=== PATIENT | female | born 1955 | race Caucasian/White ===

== ENCOUNTER → 2018-01-06 10:33 | Outpatient (CLI) | payer OTHER, SELFPAY ==
--- NOTE | 2018-01-06 | OV.WND_ITS ---
Progress Note Details Patient Name: Alesha Crawford Patient Number: [id number] PatientPatientDate: 01/06/2018 Clinician: Irene Farley Physician / Developmental Specialist: Donnie Garrido SUBJECTIVE Chief Complaint This information was obtained from the patient Cellulitis on Right Leg Allergies lisinopril (Severity: Moderate), losartan (Severity: Moderate) HPI This information was obtained from the patient 01/06/18. Seen by Dr. Garrido. The patient's new to our clinic and presents with a chronic right lower leg venous ulcer that was first noticed about 6 weeks ago. She reports significant drainage from the site and completed a course of Keflex a few weeks ago without improvement. She's also now on Lasix for chronic venous hypertension but does not wear a compression stocking. Her diabetes is historically poorly controlled with a recent A1c of 8.6 although she states her sugars are improving the past week to around 150. Family History This information was obtained from the patient Cancer - Sibling, Diabetes - Father, Paternal Grandparents, Heart Disease - Father, Hypertension - Father, Kidney Disease - No History, Lung Disease - No History, Mental Illness - No History, Non-contributory - No History, None - No History, Other - No History , Seizures - Sibling, Stroke - Father, Thyroid Problems - No History, Tuberculosis - No History Social History This information was obtained from the patient Never smoker, Caffeine Use - 2-3, Children - 2, Lives in - Home, Marital Status - yes, Occupation - Insurance , Self Care and Mobility Past Medical History This information was obtained from the patient Patient has a medical history of: Diabetes Factor V Neuropathy Hypertension Asthma Pulmonary Embolus (Both Lungs) Venous Insuffiency Morbid Obesity IBS Wound Surgical History This information was obtained from the patient Patient has a surgical history of: Hysterectomy (34 years ago) Complaints and Symptoms This information was obtained from the patient Patient complains of: General Notes: I have reviewed and concur with the Review of Systems and Past Family Social History documents completed by the clinician, I have reviewed and concur with the Wound Assessment document completed by the clinician Cardiovascular (Central/Peripheral): Lower extremity (leg) swelling Hematologic/Lymphatic: Bleeding / Clotting Disorders, Bleeding Tendency Integumentary (Hair/Skin/Nails): Open Sore Neurological: Loss of Protective Sensation Prior Wound History: Drainage, Erythema, Pain Patient denies complaints or symptoms related to: Cardiovascular (Central/Peripheral): Lower extremity (leg) resting pain Constitutional Symptoms (General Health): Chills, Fever Ear/Nose/Mouth/Throat: Hearing Loss / Aid Psychiatric: Memory Loss Respiratory: Oxygen Use, Shortness of Breath General Notes: States updated. Medications Coumadin 2.5 mg tablet oral 2 2 tablet oral M,W,F Sun Coumadin 2.5 mg tablet oral 3 3 tablet oral T, Edda, Sat gabapentin 300 mg capsule oral 1 1 capsule oral once daily Aller-Sandip 10 mg tablet oral 1 1 tablet oral once daily metformin 500 mg tablet oral 1 1 tablet oral three times daily glipizide 10 mg tablet oral 1 1 tablet oral 4 times a day lovastatin 10 mg tablet oral 1 1 tablet oral once daily hydralazine 25 mg tablet oral 1 1 tablet oral twice daily Humulin N NPH U-100 Insulin (isophane susp) 100 unit/mL subcutaneous subcutaneous 18u 18u suspension subcutaneous twice daily Humulin R U-500 (Concentrated) Insulin 500 unit/mL subcutaneous soln subcutaneous 18u 18u solution subcutaneous twice daily montelukast 10 mg tablet oral 1 1 tablet oral once daily furosemide 40 mg tablet oral 1 1 tablet oral once daily potassium chloride ER 20 mEq tablet,extended release oral 1 1 tablet extended release oral once daily hydrochlorothiazide 25 mg tablet oral 1 1 tablet oral once daily gentamicin 0.1 % topical ointment topical ointment topical once daily for 7 days OBJECTIVE Constitutional BP elevated; Afebrile; Alert and in no distress. Well developed. Alert. Clean appearing.. Height/Length: 64 in (162.56 cm), Weight: 163.7 lbs (74.41 kgs), BMI: 28.1, Temperature: 98.6 ?F (37 ?C), Pulse: 86 bpm, Respiratory Rate: 16 breaths/min, Blood Pressure : 137/78 mmHg, Pulse Oximetry: 96 %. Ears, Nose, Mouth, and Throat: No clinically significant hearing loss on informal examination. Respiratory: No respiratory distress. Even respirations and without use of accessory muscles.. Cardiovascular: 2+ bilateral lower leg edema. Gastrointestinal (GI): Obese. Nondistended.. Integumentary (Hair, Skin) Hemosiderin staining noted over right lower leg. Refer to appropriate clinician wound documentation for this visit; right lower leg ulcer extends to subcut with base partially covered with pink granulation, remainder fibrin and slough. Wound #1 Right, Medial Ankle is a chronic Full Thickness Venous Ulcer and has received a status of Not Healed. Initial wound encounter measurements are 2.2cm length x 2.5cm width x 0.2cm depth, with an area of 5.5 sq cm and a volume of 1.1 cubic cm. No tunneling has been noted. No sinus tract has been noted. No undermining has been noted. There is a large amount of serosanguineous drainage noted which has no odor. The patient reports a wound pain of level 0/10. The wound margin is attached. Wound bed has No epithelialization, No eschar, Yes slough, Yes pink, spongy granulation. The periwound skin texture is normal. The periwound skin moisture is normal. The periwound skin color is normal. The temperature of the periwound skin is WNL. Periwound skin presents with s/s of infection. Local Pulse is Palpable. General Notes: Bi-Phasic bi-lat on PT and DP. Neurological: Cranial nerves grossly intact with symmetric function normal by informal observation.. ASSESSMENT Active Problems ICD-10 (Encounter Diagnosis) L97.822 - Non-pressure chronic ulcer of other part of left lower leg with fat layer exposed (Encounter Diagnosis) I87.311 - Chronic venous hypertension (idiopathic) with ulcer of right lower extremity (Encounter Diagnosis) L08.9 - Local infection of the skin and subcutaneous tissue, unspecified (Encounter Diagnosis) E11.628 - Type 2 diabetes mellitus with other skin complications PROCEDURES Wound #1 Wound #1 (Venous Ulcer) is located on the right, medial ankle. A skin/ subcutaneous tissue level surgical debridement with a total area debrided of 5.5 sq cm was performed by Donnie Garrido MD. Subcutaneous was removed along with devitalized tissue: exudate and slough. The following instrument(s) were used: curette. Pain control was achieved using 4% Lido. A time out was conducted prior to the start of the procedure. A minimal amount of bleeding was controlled with pressure. The procedure was tolerated well with a pain level of 2 throughout and a pain level of 0 following the procedure. Post Debridement Measurements: 2.2cm length x 2.5cm width x 0.2cm depth; with an area of 5.5 sq cm and a volume of 1.1 cubic cm; Additional Information Muscle fascia or bone removed and sent to pathology?: No PLAN Wound Orders: Wound #1 Right, Medial Ankle Cleanser Cleanse Wound: - With Distilled water. May Shower. - Please keep dressing dry so when you shower use a Cast Protector. Topical Treatments Antibiotic/Antimicrobial Ointment/Cream. - Gentamicin to the wound base. Dressings Primary dressing: - Aquacel foam Cover and secure with: - Conform guaze and tape to secure. Change Dressing: - Every day to twice a day. Compression/Edema Control Elevation of leg(s) above the level of the heart when sitting. Avoid prolonged standing in one place. Single Layer Compression Hose - Tetra size F on in the am and off in pm Follow-Up Appointments Return Appointment: - - One Week Other information: If you develop fever, chills, increased pain, drainage, redness or swelling please call our office. If after hours, respond to the ER. Should you experience any significant changes in your wound(s) or have any questions regarding your home care instructions please contact the wound center @ [phone]. If after hours, contact your primary care physician or go to the hospital emergency room. Laboratory: Culture Wound - Right Medial Ankle Medications prescribed: gentamicin - topical 0.1 % ointment once daily for 7 days starting 01/06/2018 General Notes: Please start antibiotics. I've reviewed the clinician's documentation and agree with the evaluation and plan as written. In addition, the patient's ulcer demonstrates evidence of non-viable devitalized tissue which will continue to benefit from sharp debridement to help promote granulation and expedite healing. Also, I've started the patient on topical gentamicin for a superficial wound infection and will consider starting an oral antibiotic pending the culture results. She'll begin wearing a compression stocking, continue on Lasix, and I counseled her on the need to optimize the blood sugar control to help prevent wound infections. Electronic Signature(s) Signed By: Date: Donnie Garrido MD 01/07/2018 09:41:06 Entered By: Donnie Garrido on 01/07/2018 09:26:48
== END ==
PROVIDERS: PCP Family Medicine; Visit Provider Internal Medicine
DX: I87.311 Chronic venous hypertension (idiopathic) with ulcer of right lower extremity (principal); L97.822 Non-pressure chronic ulcer of other part of left lower leg with fat layer exposed; L08.9 Local infection of the skin and subcutaneous tissue, unspecified; E11.628 Type 2 diabetes mellitus with other skin complications
CPT/HCPCS: 11042; 87070; 87075; 87077; 87147; 87186; 87205; 99214

== ENCOUNTER → 2018-01-13 15:17 | Outpatient (CLI) | payer OTHER, SELFPAY ==
--- NOTE | 2018-01-13 | OV.WND_ITS ---
Progress Note Details Patient Name: Alesha Crawford Patient Number: [id number] PatientPatientDate: 01/13/2018 Clinician: Irene Farley Clinician Cosigner: Ariana Banks Physician / Pens And Pencils Dipper: Donnie Garrido SUBJECTIVE Chief Complaint This information was obtained from the patient Cellulitis on Right Leg Allergies lisinopril (Severity: Moderate), losartan (Severity: Moderate) HPI This information was obtained from the patient 01/13/18. Seen by Dr. Garrido. The patient reports a modest improvement in terms of her right lower leg venous ulcer pain and drainage since her last visit and she's applying topical gentamicin to treat the recent Staph positive culture. 01/06/18. Seen by Dr. Garrido. The patient's new to our clinic and presents with a chronic right lower leg venous ulcer that was first noticed about 6 weeks ago. She reports significant drainage from the site and completed a course of Keflex a few weeks ago without improvement. She's also now on Lasix for chronic venous hypertension but does not wear a compression stocking. Her diabetes is historically poorly controlled with a recent A1c of 8.6 although she states her sugars are improving the past week to around 150. Past Medical History This information was obtained from the patient Patient has a medical history of: Diabetes Factor V Neuropathy Hypertension Asthma Pulmonary Embolus (Both Lungs) Venous Insuffiency Morbid Obesity IBS Wound Complaints and Symptoms This information was obtained from the patient Patient complains of: General Notes: I have reviewed and concur with the Review of Systems and Past Family Social History documents completed by the clinician, I have reviewed and concur with the Wound Assessment document completed by the clinician Cardiovascular (Central/Peripheral): Lower extremity (leg) swelling Hematologic/Lymphatic: Bleeding / Clotting Disorders, Bleeding Tendency Integumentary (Hair/Skin/Nails): Open Sore Neurological: Loss of Protective Sensation Prior Wound History: Drainage, Erythema, Pain Patient denies complaints or symptoms related to: Cardiovascular (Central/Peripheral): Lower extremity (leg) resting pain Constitutional Symptoms (General Health): Chills, Fever Ear/Nose/Mouth/Throat: Hearing Loss / Aid Psychiatric: Memory Loss Respiratory: Oxygen Use, Shortness of Breath OBJECTIVE Constitutional BP elevated; Afebrile; Alert and in no distress. Well developed. Alert. Clean appearing.. Height/Length: 64 in (162.56 cm), Weight: 163.7 lbs (74.41 kgs), BMI: 28.1, Temperature: 96.6 ?F (35.89 ?C), Pulse: 103 bpm, Respiratory Rate: 16 breaths/min, Blood Pressure: 140/82 mmHg, Capillary Blood Glucose: 160 mg/dl, Pulse Oximetry: 94 %. Vital Signs Notes: Glucose per patient. Ears, Nose, Mouth, and Throat: No clinically significant hearing loss on informal examination. Cardiovascular: 2+ right lower extremity edema. Gastrointestinal (GI): Obese. Nondistended.. Integumentary (Hair, Skin) Hemosiderin staining noted over right lower leg. Refer to appropriate clinician wound documentation for this visit; right lower leg ulcer extends to subcut with base partially covered with pink granulation, remainder fibrin and slough. Wound #1 Right, Medial Ankle is a chronic Full Thickness Venous Ulcer and has received a status of Not Healed. Initial wound encounter measurements are 2cm length x 2.1cm width x 0.1cm depth, with an area of 4.2 sq cm and a volume of 0.42 cubic cm. No tunneling has been noted. No sinus tract has been noted. No undermining has been noted. There is a copious amount of serosanguineous drainage noted which has no odor. The patient reports a wound pain of level 0/10. The wound margin is attached. Wound bed has No epithelialization, No eschar, Yes slough, Yes pink, spongy granulation. The periwound skin texture is normal. The periwound skin color is normal. The periwound skin exhibited: Maceration. The temperature of the periwound skin is WNL. Periwound skin does not exhibit signs or symptoms of infection. Local Pulse is Palpable. Neurological: Cranial nerves grossly intact with symmetric function normal by informal observation.. ASSESSMENT Active Problems ICD-10 (Encounter Diagnosis) L97.822 - Non-pressure chronic ulcer of other part of left lower leg with fat layer exposed (Encounter Diagnosis) I87.311 - Chronic venous hypertension (idiopathic) with ulcer of right lower extremity (Encounter Diagnosis) B95.61 - Methicillin susceptible Staphylococcus aureus infection as the cause of diseases classified elsewhere PROCEDURES Wound #1 Wound #1 (Venous Ulcer) is located on the right, medial ankle. A skin/ subcutaneous tissue level surgical debridement with a total area debrided of 4.2 sq cm was performed by Donnie Garrido MD. Subcutaneous was removed along with devitalized tissue: slough. The following instrument(s) were used: curette. Pain control was achieved using 4% Lido. A time out was conducted prior to the start of the procedure. No bleeding occurred. The procedure was tolerated well with a pain level of 0 throughout and a pain level of 0 following the procedure. Post Debridement Measurements: 2cm length x 2.1cm width x 0.1cm depth; with an area of 4.2 sq cm and a volume of 0.42 cubic cm; Additional Information Muscle fascia or bone removed and sent to pathology?: No PLAN Wound Orders: Wound #1 Right, Medial Ankle Cleanser Cleanse Wound: - With Distilled water. May Shower. - Please keep dressing dry so when you shower use a Cast Protector. Topical Treatments Antibiotic/Antimicrobial Ointment/Cream. - Gentamicin to the wound base. Dressings Pack wound: - Aquacel Extra Primary dressing: - Superabsorbent Mextra Cover and secure with: - Conform guaze and tape to secure. Change Dressing: - Every day to twice a day. Compression/Edema Control Elevation of leg(s) above the level of the heart when sitting. Avoid prolonged standing in one place. Single Layer Compression Hose - Tetra size G on in the am and off in pm Follow-Up Appointments Return Appointment: - - One Week Other information: If you develop fever, chills, increased pain, drainage, redness or swelling please call our office. If after hours, respond to the ER. Should you experience any significant changes in your wound(s) or have any questions regarding your home care instructions please contact the wound center @ [phone]. If after hours, contact your primary care physician or go to the hospital emergency room. I've reviewed the clinician's documentation and agree with the evaluation and plan as written. In addition, the patient's ulcer demonstrates evidence of non-viable devitalized tissue which will continue to benefit from sharp debridement to help promote granulation and expedite healing. Also, the patient will continue to treat the superficial Staph wound infection with topical gentamicin. Electronic Signature(s) Signed By: Date: Donnie Garrido MD 01/14/2018 06:00:06 Entered By: Donnie Garrido on 01/14/2018 05:41:50
== END ==
PROVIDERS: PCP Family Medicine; Visit Provider Internal Medicine
DX: I87.311 Chronic venous hypertension (idiopathic) with ulcer of right lower extremity (principal); L97.312 Non-pressure chronic ulcer of right ankle with fat layer exposed; B95.61 Methicillin susceptible Staphylococcus aureus infection as the cause of diseases classified elsewhere
CPT/HCPCS: 11042

== ENCOUNTER → 2018-01-19 09:21 | Outpatient (CLI) | payer OTHER, SELFPAY ==
--- NOTE | 2018-01-19 | OV.WND_ITS ---
Progress Note Details Patient Name: Alesha Crawford Patient Number: [id number] PatientPatientDate: 01/19/2018 Clinician: Celine Smith Clinician Cosigner: Veda Ty Physician / Information Systems Auditor: Donnie Garrido SUBJECTIVE Chief Complaint This information was obtained from the patient Cellulitis on Right Leg Allergies lisinopril (Severity: Moderate), losartan (Severity: Moderate) HPI This information was obtained from the patient 01/19/18. Seen by Dr. Garrido. The patient does not report significant pain associated with the chronic right lower leg venous ulcer since her last visit however she continues to have very heavy, serous drainage from the site. She's wearing a compression stocking as recommended to treat severe chronic venous hypertension and is applying topical gentamicin to the ulcer base to treat the MSSA positive wound culture. 01/13/18. Seen by Dr. Garrido. The patient reports a modest improvement in terms of her right lower leg venous ulcer pain and drainage since her last visit and she's applying topical gentamicin to treat the recent Staph positive culture. 01/06/18. Seen by Dr. Garrido. The patient's new to our clinic and presents with a chronic right lower leg venous ulcer that was first noticed about 6 weeks ago. She reports significant drainage from the site and completed a course of Keflex a few weeks ago without improvement. She's also now on Lasix for chronic venous hypertension but does not wear a compression stocking. Her diabetes is historically poorly controlled with a recent A1c of 8.6 although she states her sugars are improving the past week to around 150. Past Medical History This information was obtained from the patient Patient has a medical history of: Diabetes Factor V Neuropathy Hypertension Asthma Pulmonary Embolus (Both Lungs) Venous Insuffiency Morbid Obesity IBS Wound Complaints and Symptoms This information was obtained from the patient Patient complains of: General Notes: I have reviewed and concur with the Review of Systems and Past Family Social History documents completed by the clinician, I have reviewed and concur with the Wound Assessment document completed by the clinician Cardiovascular (Central/Peripheral): Lower extremity (leg) swelling Hematologic/Lymphatic: Bleeding / Clotting Disorders, Bleeding Tendency Integumentary (Hair/Skin/Nails): Open Sore Neurological: Loss of Protective Sensation Prior Wound History: Drainage, Erythema, Pain Patient denies complaints or symptoms related to: Cardiovascular (Central/Peripheral): Lower extremity (leg) resting pain Constitutional Symptoms (General Health): Chills, Fever Ear/Nose/Mouth/Throat: Hearing Loss / Aid Psychiatric: Memory Loss Respiratory: Oxygen Use, Shortness of Breath OBJECTIVE Constitutional Vital signs reviewed and noted. Well developed. Alert. Clean appearing.. Height/ Length: 64 in (162.56 cm), Weight: 375.1 lbs (170.5 kgs), BMI: 64.4, Temperature: 97.3 ?F ( 36.28 ?C), Pulse: 90 bpm, Respiratory Rate: 16 breaths/min, Blood Pressure: 136/65 mmHg, Capillary Blood Glucose: 184 mg/dl, Pulse Oximetry: 95 %. Ears, Nose, Mouth, and Throat: No clinically significant hearing loss on informal examination. Respiratory: No respiratory distress. Even respirations and without use of accessory muscles.. Cardiovascular: 2+ right lower extremity edema. Gastrointestinal (GI): Obese. Nondistended.. Integumentary (Hair, Skin) Hemosiderin staining noted over right lower leg. Refer to appropriate clinician wound documentation for this visit; right lower leg ulcer extends to subcut with base partially covered with pink granulation, remainder fibrin and slough. Wound #1 Right, Medial Ankle is a chronic Full Thickness Venous Ulcer and has received a status of Not Healed. Subsequent wound encounter measurements are 2.1cm length x 2cm width x 0.1cm depth, with an area of 4.2 sq cm and a volume of 0.42 cubic cm. No tunneling has been noted. No sinus tract has been noted. No undermining has been noted. There is a copious amount of serosanguineous drainage noted which has no odor. The patient reports a wound pain of level 0/10. The wound margin is attached. Wound bed has No epithelialization, No eschar, Yes slough, Yes pink, spongy granulation. The periwound skin texture is normal. The periwound skin color is normal. The periwound skin exhibited: Maceration. The temperature of the periwound skin is WNL. Periwound skin does not exhibit signs or symptoms of infection. Local Pulse is Palpable. Neurological: Cranial nerves grossly intact with symmetric function normal by informal observation.. ASSESSMENT Active Problems ICD-10 (Encounter Diagnosis) L97.822 - Non-pressure chronic ulcer of other part of left lower leg with fat layer exposed (Encounter Diagnosis) I87.311 - Chronic venous hypertension (idiopathic) with ulcer of right lower extremity PROCEDURES Wound #1 Wound #1 (Venous Ulcer) is located on the right, medial ankle. A skin/ subcutaneous tissue level surgical debridement with a total area debrided of 4.2 sq cm was performed by Donnie Garrido MD. Subcutaneous was removed along with devitalized tissue: slough. The following instrument(s) were used: curette. Pain control was achieved using 4% Lido. A time out was conducted prior to the start of the procedure. A minimal amount of bleeding was controlled with n/a. The procedure was tolerated well with a pain level of 0 throughout and a pain level of 0 following the procedure. Post Debridement Measurements: 2.1cm length x 2cm width x 0.2cm depth; with an area of 4.2 sq cm and a volume of 0.84 cubic cm; Additional Information Muscle fascia or bone removed and sent to pathology?: No PLAN Wound Orders: Wound #1 Right, Medial Ankle Cleanser Cleanse Wound: - With Distilled water. May Shower. - Please keep dressing dry so when you shower use a Cast Protector. Topical Treatments Antibiotic/Antimicrobial Ointment/Cream. - Gentamicin to the wound base. Dressings Pack wound: - Aquacel Extra Primary dressing: - Superabsorbent Mextra Cover and secure with: - Conform guaze and tape to secure. Change Dressing: - Every day to twice a day. Compression/Edema Control Elevation of leg(s) above the level of the heart when sitting. Avoid prolonged standing in one place. Single Layer Compression Hose - Tetra size G on in the am and off in pm Follow-Up Appointments Return Appointment: - - One Week Other information: If you develop fever, chills, increased pain, drainage, redness or swelling please call our office. If after hours, respond to the ER. Should you experience any significant changes in your wound(s) or have any questions regarding your home care instructions please contact the wound center @ [phone]. If after hours, contact your primary care physician or go to the hospital emergency room. I've reviewed the clinician's documentation and agree with the evaluation and plan as written. In addition, the patient's ulcer demonstrates evidence of non-viable devitalized tissue which will continue to benefit from sharp debridement to help promote granulation and expedite healing. Also, we will request insurance authorization for a wound vac and consider placing a compression wrap next week. Electronic Signature(s) Signed By: Date: Donnie Garrido MD 01/20/2018 06:42:26 Entered By: Donnie Garrido on 01/20/2018 06:40:42
== END ==
PROVIDERS: PCP Family Medicine; Visit Provider Internal Medicine
DX: I87.311 Chronic venous hypertension (idiopathic) with ulcer of right lower extremity (principal); L97.312 Non-pressure chronic ulcer of right ankle with fat layer exposed
CPT/HCPCS: 11042

== ENCOUNTER → 2018-01-26 08:42 | Outpatient (CLI) | payer OTHER, SELFPAY ==
--- NOTE | 2018-01-26 | OV.WND_ITS ---
Progress Note Details Patient Name: Alesha Crawford Patient Number: [id number] PatientPatientDate: 01/26/2018 Clinician: Veda yT Clinician Cosigner: Ariana Banks Physician / Reproduction Production Manager: Donnie Garrido SUBJECTIVE Chief Complaint This information was obtained from the patient Venous ulcer on right leg. Allergies lisinopril (Severity: Moderate), losartan (Severity: Moderate) HPI This information was obtained from the patient 01/26/18. Seen by Dr. Garrido. The patient does not report significant pain associated with the chronic right lower leg venous ulcer since her last visit and we're planning on placing a compression wrap today to treat the chronic venous hypertension which is complicating her wound healing. 01/19/18. Seen by Dr. Garrido. The patient does not report significant pain associated with the chronic right lower leg venous ulcer since her last visit however she continues to have very heavy, serous drainage from the site. She's wearing a compression stocking as recommended to treat severe chronic venous hypertension and is applying topical gentamicin to the ulcer base to treat the MSSA positive wound culture. 01/13/18. Seen by Dr. Garrido. The patient reports a modest improvement in terms of her right lower leg venous ulcer pain and drainage since her last visit and she's applying topical gentamicin to treat the recent Staph positive culture. 01/06/18. Seen by Dr. Garrido. The patient's new to our clinic and presents with a chronic right lower leg venous ulcer that was first noticed about 6 weeks ago. She reports significant drainage from the site and completed a course of Keflex a few weeks ago without improvement. She's also now on Lasix for chronic venous hypertension but does not wear a compression stocking. Her diabetes is historically poorly controlled with a recent A1c of 8.6 although she states her sugars are improving the past week to around 150. Past Medical History This information was obtained from the patient Patient has a medical history of: Diabetes Factor V Neuropathy Hypertension Asthma Pulmonary Embolus (Both Lungs) Venous Insuffiency Morbid Obesity IBS Wound Complaints and Symptoms This information was obtained from the patient Patient complains of: General Notes: I have reviewed and concur with the Review of Systems and Past Family Social History documents completed by the clinician, I have reviewed and concur with the Wound Assessment document completed by the clinician Cardiovascular (Central/Peripheral): Lower extremity (leg) swelling Hematologic/Lymphatic: Bleeding / Clotting Disorders, Bleeding Tendency Integumentary (Hair/Skin/Nails): Open Sore Neurological: Loss of Protective Sensation Prior Wound History: Drainage, Erythema, Pain Patient denies complaints or symptoms related to: Cardiovascular (Central/Peripheral): Lower extremity (leg) resting pain Constitutional Symptoms (General Health): Chills, Fever Ear/Nose/Mouth/Throat: Hearing Loss / Aid Psychiatric: Memory Loss Respiratory: Oxygen Use, Shortness of Breath OBJECTIVE Constitutional BP elevated; Afebrile; Alert and in no distress. Well developed. Alert. Clean appearing.. Height/Length: 64 in (162.56 cm), Weight: 373.4 lbs (169.73 kgs), BMI: 64.1, Temperature: 97.8 ?F (36.56 ?C), Pulse: 92 bpm, Respiratory Rate: 18 breaths/min, Blood Pressure: 139/71 mmHg, Capillary Blood Glucose: 162 mg/dl, Pulse Oximetry: 96 %. Vital Signs Notes: Glucose per patient. Ears, Nose, Mouth, and Throat: No clinically significant hearing loss on informal examination. Respiratory: No respiratory distress. Even respirations and without use of accessory muscles.. Cardiovascular: monophasic pedal pulses on the right. 2+ right lower extremity edema. Gastrointestinal (GI): Obese. Nondistended.. Integumentary (Hair, Skin) Hemosiderin staining noted over right lower leg. Refer to appropriate clinician wound documentation for this visit; right lower leg ulcer extends to subcut with base partially covered with pink granulation, remainder fibrin and slough. Wound #1 Right, Medial Ankle is a chronic Full Thickness Venous Ulcer and has received a status of Not Healed. Subsequent wound encounter measurements are 2cm length x 2cm width x 0.1cm depth, with an area of 4 sq cm and a volume of 0.4 cubic cm. No tunneling has been noted. No sinus tract has been noted. No undermining has been noted. There is a copious amount of serosanguineous drainage noted which has no odor. The patient reports a wound pain of level 0/10. The wound margin is attached. Wound bed has Yes epithelialization, No eschar, Yes slough, Yes pink, firm granulation. The periwound skin texture is normal. The periwound skin exhibited: Hemosiderosis. The periwound skin did not exhibit: Dry/Scaly, Moist, Maceration, Atrophie Ursula, Cyanosis, Ecchymosis, Erythema, Pallor, Rubor. The temperature of the periwound skin is WNL. Periwound skin does not exhibit signs or symptoms of infection. Local Pulse is Palpable. Neurological: Cranial nerves grossly intact with symmetric function normal by informal observation.. ASSESSMENT Active Problems ICD-10 (Encounter Diagnosis) L97.822 - Non-pressure chronic ulcer of other part of left lower leg with fat layer exposed (Encounter Diagnosis) I87.311 - Chronic venous hypertension (idiopathic) with ulcer of right lower extremity PROCEDURES Wound #1 Wound #1 (Venous Ulcer) is located on the right, medial ankle. A skin/ subcutaneous tissue level surgical debridement with a total area debrided of 4 sq cm was performed by Donnie Garrido MD. Subcutaneous was removed along with devitalized tissue: slough. The following instrument(s) were used: curette. Pain control was achieved using 4% Lido. A time out was conducted prior to the start of the procedure. A minimal amount of bleeding was controlled with pressure. The procedure was tolerated well with a pain level of 0 throughout and a pain level of 0 following the procedure. Post Debridement Measurements: 2cm length x 2cm width x 0.2cm depth; with an area of 4 sq cm and a volume of 0.8 cubic cm; Additional Information Muscle fascia or bone removed and sent to pathology?: No PLAN Wound Orders: Wound #1 Right, Medial Ankle Cleanser Cleanse Wound: - With Distilled water. May Shower. - Please keep dressing dry so when you shower use a Cast Protector. Topical Treatments Antibiotic/Antimicrobial Ointment/Cream. - Gentamicin to the wound base. Dressings Pack wound: - Aquacel Extra. Primary dressing: - Superabsorbent Mextra (may alternate with poise pads). Cover and secure with: - Conform guaze and tape to secure. Change Dressing: - Every day to twice a day. Compression/Edema Control Elevation of leg(s) above the level of the heart when sitting. Avoid prolonged standing in one place. Single Layer Compression Hose - Tetra size F on in the am and off in pm. Follow-Up Appointments Return Appointment: - - One Week, may cancel this Wednesday's appointment. Other information: If you develop fever, chills, increased pain, drainage, redness or swelling please call our office. If after hours, respond to the ER. Should you experience any significant changes in your wound(s) or have any questions regarding your home care instructions please contact the wound center @ [phone]. If after hours, contact your primary care physician or go to the hospital emergency room. Scribing Attestation I attest, as the nurse, that I scribed these orders for the physician. Cardiovascular: Arterial Doppler Studies - Right lower extremity. General Notes: Plan to wrap at next visit if arterial Doppler studies show adequate flow. I've reviewed the clinician's documentation and agree with the evaluation and plan as written. In addition, the patient's ulcer demonstrates evidence of non-viable devitalized tissue which will continue to benefit from sharp debridement to help promote granulation and expedite healing. Also, we'll defer placing a compression wrap based on my exam today and until we determine if the a degree of clinically significant PAD. Electronic Signature(s) Signed By: Date: Donnie Garrido MD 01/27/2018 09:13:39 Entered By: Donnie Garrido on 01/27/2018 09:10:08
== END ==
PROVIDERS: PCP Family Medicine; Visit Provider Internal Medicine
DX: L97.822 Non-pressure chronic ulcer of other part of left lower leg with fat layer exposed (principal); I87.311 Chronic venous hypertension (idiopathic) with ulcer of right lower extremity
CPT/HCPCS: 11042

== ENCOUNTER → 2018-02-02 09:11 | Outpatient (CLI) | payer OTHER, SELFPAY | PROVIDERS: PCP Family Medicine; Visit Provider Internal Medicine | DX: I87.311 Chronic venous hypertension (idiopathic) with ulcer of right lower extremity (principal); L97.312 Non-pressure chronic ulcer of right ankle with fat layer exposed; I70.238 Atherosclerosis of native arteries of right leg with ulceration of other part of lower leg | CPT/HCPCS: 11042; 97607 ==

== ENCOUNTER → 2018-02-04 08:28 | Outpatient (CLI) | payer OTHER, SELFPAY ==
--- NOTE | 2018-02-04 | OV.WND_ITS ---
Progress Note Details Patient Name: Alesha Crawford Patient Number: [id number] PatientPatientDate: 02/04/2018 Clinician: Celine Smith Clinician Cosigner: Ariana Banks Physician / Treating Machine Operator: Donnie Garrido SUBJECTIVE Chief Complaint This information was obtained from the patient Venous ulcer on right leg. Allergies lisinopril (Severity: Moderate), losartan (Severity: Moderate) HPI This information was obtained from the patient 02/04/18. Seen by Dr. Garrido. The patient's right lower leg venous ulcer SNAP wound vac canister will with fluid within on day of being placed. She does not report pain at the ulcer this and has not yet scheduled an appointment for a vascular consult noting her arterial Doppler showed monophasic flow below the knee. She also has diabetes with a most recent A1c of 8.6 and has stopped applying topical gentamicin which was prescribed for an MSSA positive wound culture. 02/02/18. Seen by Dr. Garrido. The patient does not report significant pain associated with the chronic right lower leg venous ulcer since her last visit. Her arterial Doppler however showed monophasic flow below the knee and she reports pain in both of her feet when lying in bed for which Tylenol is effective at relieving her symptoms. 01/26/18. Seen by Dr. Garrido. The patient does not report significant pain associated with the chronic right lower leg venous ulcer since her last visit and we're planning on placing a compression wrap today to treat the chronic venous hypertension which is complicating her wound healing. 01/19/18. Seen by Dr. Garrido. The patient does not report significant pain associated with the chronic right lower leg venous ulcer since her last visit however she continues to have very heavy, serous drainage from the site. She's wearing a compression stocking as recommended to treat severe chronic venous hypertension and is applying topical gentamicin to the ulcer base to treat the MSSA positive wound culture. 01/13/18. Seen by Dr. Garrido. The patient reports a modest improvement in terms of her right lower leg venous ulcer pain and drainage since her last visit and she's applying topical gentamicin to treat the recent Staph positive culture. 01/06/18. Seen by Dr. Garrido. The patient's new to our clinic and presents with a chronic right lower leg venous ulcer that was first noticed about 6 weeks ago. She reports significant drainage from the site and completed a course of Keflex a few weeks ago without improvement. She's also now on Lasix for chronic venous hypertension but does not wear a compression stocking. Her diabetes is historically poorly controlled with a recent A1c of 8.6 although she states her sugars are improving the past week to around 150. Past Medical History This information was obtained from the patient Patient has a medical history of: Diabetes, type 2 Factor V Neuropathy Hypertension Asthma Pulmonary Embolus (Both Lungs) Venous Insuffiency Morbid Obesity IBS Wound Complaints and Symptoms This information was obtained from the patient Patient complains of: General Notes: I have reviewed and concur with the Review of Systems and Past Family Social History documents completed by the clinician, I have reviewed and concur with the Wound Assessment document completed by the clinician Cardiovascular (Central/Peripheral): Lower extremity (leg) swelling Hematologic/Lymphatic: Bleeding / Clotting Disorders, Bleeding Tendency Integumentary (Hair/Skin/Nails): Open Sore Neurological: Loss of Protective Sensation Prior Wound History: Drainage, Erythema, Pain Patient denies complaints or symptoms related to: Cardiovascular (Central/Peripheral): Lower extremity (leg) resting pain Constitutional Symptoms (General Health): Chills, Fever Ear/Nose/Mouth/Throat: Hearing Loss / Aid Psychiatric: Memory Loss Respiratory: Oxygen Use, Shortness of Breath OBJECTIVE Constitutional BP elevated; Afebrile; Alert and in no distress. Well developed. Alert. Clean appearing.. Height/Length: 64 in (162.56 cm), Weight: 375 lbs (170.45 kgs), BMI: 64.4, Temperature: 97.7 ?F (36.5 ?C), Pulse: 100 bpm, Respiratory Rate: 18 breaths/min, Blood Pressure: 137/75 mmHg, Capillary Blood Glucose: 147 mg/dl, Pulse Oximetry: 99 %. Vital Signs Notes: Glucose per patient Ears, Nose, Mouth, and Throat: No clinically significant hearing loss on informal examination. Respiratory: No respiratory distress. Even respirations and without use of accessory muscles.. Cardiovascular: 2+ right lower extremity edema. Gastrointestinal (GI): Obese. Nondistended.. Integumentary (Hair, Skin) Hemosiderin staining noted over right lower leg. Refer to appropriate clinician wound documentation for this visit; right lower leg ulcer extends to subcut with base partially covered with pink granulation, remainder fibrin and slough. Wound #1 Right, Medial Ankle is a chronic Full Thickness Venous Ulcer and has received a status of Not Healed. Subsequent wound encounter measurements are 2cm length x 2cm width x 0.1cm depth, with an area of 4 sq cm and a volume of 0.4 cubic cm. No tunneling has been noted. No sinus tract has been noted. No undermining has been noted. There is a large amount of serous drainage noted which has no odor. The patient reports a wound pain of level 0/10. The wound margin is attached. Wound bed has Yes epithelialization, No eschar, Yes slough, Yes pink, firm granulation. The periwound skin texture is normal. The periwound skin moisture is normal. The periwound skin exhibited: Hemosiderosis. The periwound skin did not exhibit: Atrophie Belk, Cyanosis, Ecchymosis, Erythema, Pallor, Rubor. The temperature of the periwound skin is WNL. Periwound skin does not exhibit signs or symptoms of infection. Local Pulse is Palpable. Neurological: Cranial nerves grossly intact with symmetric function normal by informal observation.. ASSESSMENT Active Problems ICD-10 (Encounter Diagnosis) L97.822 - Non-pressure chronic ulcer of other part of left lower leg with fat layer exposed (Encounter Diagnosis) I87.311 - Chronic venous hypertension (idiopathic) with ulcer of right lower extremity (Encounter Diagnosis) I70.238 - Atherosclerosis of kaibab arteries of right leg with ulceration of other part of lower right leg (Encounter Diagnosis) E11.628 - Type 2 diabetes mellitus with other skin complications PLAN Wound Orders: Wound #1 Right, Medial Ankle Cleanser Cleanse Wound: - With Distilled water. May Shower. - Please keep dressing dry so when you shower use a Cast Protector. Topical Treatments Antibiotic/Antimicrobial Ointment/Cream. - Gentamicin to the wound base. Dressings Pack wound: - Aquacel Extra. Primary dressing: - Superabsorbent Mextra (may alternate with poise pads). Cover and secure with: - Conform guaze and tape to secure. Change Dressing: - Every day to twice a day. Compression/Edema Control Elevation of leg(s) above the level of the heart when sitting. Avoid prolonged standing in one place. Single Layer Compression Hose - Tetra size F on in the am and off in pm. Additional Orders: Follow-Up Appointments Return Appointment: - - One Week Other information: If you develop fever, chills, increased pain, drainage, redness or swelling please call our office. If after hours, respond to the ER. Should you experience any significant changes in your wound(s) or have any questions regarding your home care instructions please contact the wound center @ [phone]. If after hours, contact your primary care physician or go to the hospital emergency room. Scribing Attestation I attest, as the nurse, that I scribed these orders for the physician. Laboratory: Culture Wound I've reviewed the clinician's documentation and agree with the evaluation and plan as written. In addition, the patient's ulcer demonstrates evidence of non-viable devitalized tissue which will continue to benefit from sharp debridement to help promote granulation and expedite healing. Also, I've cultured the ulcer site due to the heavy drainage, held NPWT and will apply for insurance authorization for [employer] wound vac, and have encouraged her to schedule her appointment for review of PAD based on her Doppler study. Electronic Signature(s) Signed By: Date: Donnie Garrido MD 02/07/2018 13:43:10 Entered By: Donnie Garrido on 02/07/2018 13:40:42
== END ==
PROVIDERS: PCP Family Medicine; Visit Provider Internal Medicine
DX: I87.311 Chronic venous hypertension (idiopathic) with ulcer of right lower extremity (principal); L97.312 Non-pressure chronic ulcer of right ankle with fat layer exposed; I70.238 Atherosclerosis of native arteries of right leg with ulceration of other part of lower leg; E11.628 Type 2 diabetes mellitus with other skin complications
CPT/HCPCS: 11042; 87070; 87075; 87077; 87147; 87186; 87205

== ENCOUNTER → 2018-02-11 16:13 | Outpatient (CLI) | payer OTHER, SELFPAY | PROVIDERS: PCP Family Medicine; Visit Provider Internal Medicine | DX: I70.238 Atherosclerosis of native arteries of right leg with ulceration of other part of lower leg (principal); I87.311 Chronic venous hypertension (idiopathic) with ulcer of right lower extremity; L97.312 Non-pressure chronic ulcer of right ankle with fat layer exposed | CPT/HCPCS: 11042 ==

== ENCOUNTER → 2018-02-15 08:59 | Outpatient (CLI) | payer OTHER, SELFPAY ==
--- NOTE | 2018-02-15 | OV.WND_ITS ---
Progress Note Details Patient Name: Alesha Crawford Patient Number: [id number] PatientPatientDate: 02/15/2018 Clinician: Zoey Payne Clinician Cosigner: Ariana Banks Physician / Mri Special Procedures Technologist: Donnie Garrido SUBJECTIVE Chief Complaint This information was obtained from the patient Venous ulcer on right leg. Allergies lisinopril (Severity: Moderate), losartan (Severity: Moderate) HPI This information was obtained from the patient 02/15/18. Seen by Dr. Garrido. The patient does not report significant pain associated with the chronic right lower leg venous ulcer since her last visit and she's wearing her compression stocking as recommended. 02/11/18. Seen by Dr. Garrido. The patient does not report significant pain associated with the chronic right lower leg venous ulcer since her last visit. We've deferred placing a compression wrap thus far based on her arterial doppler showing monophasic flow in the lower limb and her vascular consult is not scheduled until March. 02/04/18. Seen by Dr. Garrido. The patient's right lower leg venous ulcer SNAP wound vac canister will with fluid within on day of being placed. She does not report pain at the ulcer this and has not yet scheduled an appointment for a vascular consult noting her arterial Doppler showed monophasic flow below the knee. She also has diabetes with a most recent A1c of 8.6 and has stopped applying topical gentamicin which was prescribed for an MSSA positive wound culture. 02/02/18. Seen by Dr. Garrido. The patient does not report significant pain associated with the chronic right lower leg venous ulcer since her last visit. Her arterial Doppler however showed monophasic flow below the knee and she reports pain in both of her feet when lying in bed for which Tylenol is effective at relieving her symptoms. 01/26/18. Seen by Dr. Garrido. The patient does not report significant pain associated with the chronic right lower leg venous ulcer since her last visit and we're planning on placing a compression wrap today to treat the chronic venous hypertension which is complicating her wound healing. 01/19/18. Seen by Dr. Garrido. The patient does not report significant pain associated with the chronic right lower leg venous ulcer since her last visit however she continues to have very heavy, serous drainage from the site. She's wearing a compression stocking as recommended to treat severe chronic venous hypertension and is applying topical gentamicin to the ulcer base to treat the MSSA positive wound culture. 01/13/18. Seen by Dr. Garrido. The patient reports a modest improvement in terms of her right lower leg venous ulcer pain and drainage since her last visit and she's applying topical gentamicin to treat the recent Staph positive culture. 01/06/18. Seen by Dr. Garrido. The patient's new to our clinic and presents with a chronic right lower leg venous ulcer that was first noticed about 6 weeks ago. She reports significant drainage from the site and completed a course of Keflex a few weeks ago without improvement. She's also now on Lasix for chronic venous hypertension but does not wear a compression stocking. Her diabetes is historically poorly controlled with a recent A1c of 8.6 although she states her sugars are improving the past week to around 150. Family History This information was obtained from the patient Cancer - Sibling, Diabetes - Father, Paternal Grandparents, Heart Disease - Father, Hypertension - Father, Kidney Disease - No History, Lung Disease - No History, Mental Illness - No History, Non-contributory - No History, None - No History, Other - No History , Seizures - Sibling, Stroke - Father, Thyroid Problems - No History, Tuberculosis - No History Social History This information was obtained from the patient Never smoker, Caffeine Use - 2-3, Children - 2, Lives in - Home, Marital Status - yes, Occupation - Insurance , Self Care and Mobility Past Medical History This information was obtained from the patient Patient has a medical history of: Diabetes, type 2 Factor V Neuropathy Hypertension Asthma Pulmonary Embolus (Both Lungs) Venous Insuffiency Morbid Obesity IBS Wound Surgical History This information was obtained from the patient Patient has a surgical history of: Hysterectomy (34 years ago) Complaints and Symptoms This information was obtained from the patient Patient complains of: General Notes: I have reviewed and concur with the Review of Systems and Past Family Social History documents completed by the clinician, I have reviewed and concur with the Wound Assessment document completed by the clinician Cardiovascular (Central/Peripheral): Lower extremity (leg) swelling Hematologic/Lymphatic: Bleeding / Clotting Disorders, Bleeding Tendency Integumentary (Hair/Skin/Nails): Open Sore Neurological: Loss of Protective Sensation Prior Wound History: Drainage, Erythema, Pain Patient denies complaints or symptoms related to: Cardiovascular (Central/Peripheral): Lower extremity (leg) resting pain Constitutional Symptoms (General Health): Chills, Fever Ear/Nose/Mouth/Throat: Hearing Loss / Aid Psychiatric: Memory Loss Respiratory: Oxygen Use, Shortness of Breath OBJECTIVE Constitutional BP elevated; Afebrile; Alert and in no distress. Well developed. Alert. Clean appearing.. Height/Length: 64 in (162.56 cm), Weight: 366.3 lbs (166.5 kgs), BMI: 62.9, Temperature: 98.7 ?F (37.06 ?C), Pulse: 90 bpm, Respiratory Rate: 18 breaths/min, Blood Pressure: 138/77 mmHg, Capillary Blood Glucose: 153 mg/dl, Pulse Oximetry: 96 %. Vital Signs Notes: Glucose per patient Respiratory: No respiratory distress. Even respirations and without use of accessory muscles.. Cardiovascular: 2+ right lower extremity edema. Gastrointestinal (GI): Obese. Nondistended.. Integumentary (Hair, Skin) Hemosiderin staining noted over right lower leg. Refer to appropriate clinician wound documentation for this visit; right lower leg ulcer extends to subcut with base partially covered with pink granulation, remainder fibrin and slough. Wound #1 Right, Medial Ankle is a chronic Full Thickness Venous Ulcer and has received a status of Not Healed. Subsequent wound encounter measurements are 2cm length x 2cm width x 0.1cm depth, with an area of 4 sq cm and a volume of 0.4 cubic cm. No tunneling has been noted. No sinus tract has been noted. No undermining has been noted. There is a large amount of serous drainage noted which has no odor. The patient reports a wound pain of level 0/10. The wound margin is attached. Wound bed has Yes epithelialization, No eschar, Yes slough, Yes bright red, pink, firm granulation. The periwound skin moisture is normal. The periwound skin exhibited: Edema, Erythema, Hemosiderosis. The periwound skin did not exhibit: Atrophie Ursula, Cyanosis, Ecchymosis, Pallor, Rubor. The temperature of the periwound skin is WNL. Periwound skin does not exhibit signs or symptoms of infection. Local Pulse is Palpable. Neurological: Cranial nerves grossly intact with symmetric function normal by informal observation.. ASSESSMENT Active Problems ICD-10 (Encounter Diagnosis) L97.822 - Non-pressure chronic ulcer of other part of left lower leg with fat layer exposed (Encounter Diagnosis) I87.311 - Chronic venous hypertension (idiopathic) with ulcer of right lower extremity PROCEDURES Wound #1 Wound #1 (Venous Ulcer) is located on the right, medial ankle. A skin/ subcutaneous tissue level surgical debridement with a total area debrided of 4 sq cm was performed by Donnie Garrido MD. Subcutaneous was removed along with devitalized tissue: exudate and slough. The following instrument(s) were used: curette. Pain control was achieved using 4% Lido. A time out was conducted prior to the start of the procedure. A minimal amount of bleeding was controlled with n/a. The procedure was tolerated well with a pain level of 0 throughout and a pain level of 0 following the procedure. Post Debridement Measurements: 2cm length x 2cm width x 0.2cm depth; with an area of 4 sq cm and a volume of 0.8 cubic cm; Additional Information Muscle fascia or bone removed and sent to pathology?: No PLAN Wound Orders: Wound #1 Right, Medial Ankle Anesthetic Topical Xylocaine to wound bed. - In clinic only. Cleanser Cleanse Wound: - With Distilled water. May Shower. - Please keep dressing dry so when you shower use a Cast Protector. Dressings Pack wound: - Aquacel Extra. Primary dressing: - Superabsorbent Mextra (may alternate with poise pads). Cover and secure with: - Conform guaze and tape to secure. Change Dressing: - Every day to twice a day. Additional Orders: Compression/Edema Control Elevation of leg(s) above the level of the heart when sitting. Avoid prolonged standing in one place. Single Layer Compression Hose - Tetra size F on in the am and off in pm. Follow-Up Appointments Return Appointment: - - One Week Other information: If you develop fever, chills, increased pain, drainage, redness or swelling please call our office. If after hours, respond to the ER. Should you experience any significant changes in your wound(s) or have any questions regarding your home care instructions please contact the wound center @ [phone]. If after hours, contact your primary care physician or go to the hospital emergency room. Scribing Attestation I attest, as the nurse, that I scribed these orders for the physician. I've reviewed the clinician's documentation and agree with the evaluation and plan as written. In addition, the patient's ulcer demonstrates evidence of non-viable devitalized tissue which will continue to benefit from sharp debridement to help promote granulation and expedite healing. Electronic Signature(s) Signed By: Date: Donnie Garrido MD 02/16/2018 06:45:54 Entered By: Donnie Garrido on 02/15/2018 15:05:16
== END ==
PROVIDERS: PCP Family Medicine; Visit Provider Internal Medicine
DX: I87.311 Chronic venous hypertension (idiopathic) with ulcer of right lower extremity (principal); L97.312 Non-pressure chronic ulcer of right ankle with fat layer exposed; E11.628 Type 2 diabetes mellitus with other skin complications
CPT/HCPCS: 11042

== ENCOUNTER → 2018-02-22 09:04 | Outpatient (CLI) | payer OTHER, SELFPAY ==
--- NOTE | 2018-02-22 | OV.WND_ITS ---
Progress Note Details Patient Name: Alesha Crawford Patient Number: [id number] PatientPatientDate: 02/22/2018 Clinician: Zoey Payne Clinician Cosigner: Ariana Banks Physician / Ground Crewman Aircraft Support: Donnie Garrido SUBJECTIVE Chief Complaint This information was obtained from the patient Venous ulcer on right leg. Allergies lisinopril (Severity: Moderate), losartan (Severity: Moderate) HPI This information was obtained from the patient 02/22/18. Seen by Dr. Garrido. The patient does not report significant pain associated with the chronic right lower leg venous ulcer since her last visit and she's wearing her compression stocking as recommended. 02/15/18. Seen by Dr. Garrido. The patient does not report significant pain associated with the chronic right lower leg venous ulcer since her last visit and she's wearing her compression stocking as recommended. 02/11/18. Seen by Dr. Garrido. The patient does not report significant pain associated with the chronic right lower leg venous ulcer since her last visit. We've deferred placing a compression wrap thus far based on her arterial doppler showing monophasic flow in the lower limb and her vascular consult is not scheduled until March. 02/04/18. Seen by Dr. Garrido. The patient's right lower leg venous ulcer SNAP wound vac canister will with fluid within on day of being placed. She does not report pain at the ulcer this and has not yet scheduled an appointment for a vascular consult noting her arterial Doppler showed monophasic flow below the knee. She also has diabetes with a most recent A1c of 8.6 and has stopped applying topical gentamicin which was prescribed for an MSSA positive wound culture. 02/02/18. Seen by Dr. Garrido. The patient does not report significant pain associated with the chronic right lower leg venous ulcer since her last visit. Her arterial Doppler however showed monophasic flow below the knee and she reports pain in both of her feet when lying in bed for which Tylenol is effective at relieving her symptoms. 01/26/18. Seen by Dr. Garrido. The patient does not report significant pain associated with the chronic right lower leg venous ulcer since her last visit and we're planning on placing a compression wrap today to treat the chronic venous hypertension which is complicating her wound healing. 01/19/18. Seen by Dr. Grarido. The patient does not report significant pain associated with the chronic right lower leg venous ulcer since her last visit however she continues to have very heavy, serous drainage from the site. She's wearing a compression stocking as recommended to treat severe chronic venous hypertension and is applying topical gentamicin to the ulcer base to treat the MSSA positive wound culture. 01/13/18. Seen by Dr. Garrido. The patient reports a modest improvement in terms of her right lower leg venous ulcer pain and drainage since her last visit and she's applying topical gentamicin to treat the recent Staph positive culture. 01/06/18. Seen by Dr. Garrido. The patient's new to our clinic and presents with a chronic right lower leg venous ulcer that was first noticed about 6 weeks ago. She reports significant drainage from the site and completed a course of Keflex a few weeks ago without improvement. She's also now on Lasix for chronic venous hypertension but does not wear a compression stocking. Her diabetes is historically poorly controlled with a recent A1c of 8.6 although she states her sugars are improving the past week to around 150. Past Medical History This information was obtained from the patient Patient has a medical history of: Diabetes, type 2 Factor V Neuropathy Hypertension Asthma Pulmonary Embolus (Both Lungs) Venous Insuffiency Morbid Obesity IBS Wound Complaints and Symptoms This information was obtained from the patient Patient complains of: General Notes: I have reviewed and concur with the Review of Systems and Past Family Social History documents completed by the clinician, I have reviewed and concur with the Wound Assessment document completed by the clinician Cardiovascular (Central/Peripheral): Lower extremity (leg) swelling Hematologic/Lymphatic: Bleeding / Clotting Disorders, Bleeding Tendency Integumentary (Hair/Skin/Nails): Open Sore Neurological: Loss of Protective Sensation Prior Wound History: Drainage, Erythema, Pain Patient denies complaints or symptoms related to: Cardiovascular (Central/Peripheral): Lower extremity (leg) resting pain Constitutional Symptoms (General Health): Chills, Fever Ear/Nose/Mouth/Throat: Hearing Loss / Aid Psychiatric: Memory Loss Respiratory: Oxygen Use, Shortness of Breath OBJECTIVE Constitutional BP elevated; Afebrile; Alert and in no distress. Well developed. Alert. Clean appearing.. Height/Length: 64 in (162.56 cm), Weight: 365.5 lbs (166.14 kgs), BMI: 62.7, Temperature: 97.9 ?F (36.61 ?C), Pulse: 97 bpm, Respiratory Rate: 18 breaths/min, Blood Pressure: 136/72 mmHg, Capillary Blood Glucose: 146 mg/dl, Pulse Oximetry: 97 %. Vital Signs Notes: Glucose per patient Ears, Nose, Mouth, and Throat: No clinically significant hearing loss on informal examination. Cardiovascular: 1+ right lower extremity edema. Gastrointestinal (GI): Obese. Nondistended.. Integumentary (Hair, Skin) Mild periwound erythema without warmth; adherent yellow drainage along margins of ulcer. Refer to appropriate clinician wound documentation for this visit; right lower leg ulcer extends to subcut with base partially covered with red, friable granulation, remainder fibrin and slough. Wound #1 Right, Medial Ankle is a chronic Full Thickness Venous Ulcer and has received a status of Not Healed. Subsequent wound encounter measurements are 2cm length x 2cm width x 0.1cm depth, with an area of 4 sq cm and a volume of 0.4 cubic cm. No tunneling has been noted. No sinus tract has been noted. No undermining has been noted. There is a large amount of serous drainage noted which has no odor. The patient reports a wound pain of level 0/10. The wound margin is attached. Wound bed has Yes epithelialization, No eschar, Yes slough, Yes bright red, pink, firm granulation. The periwound skin moisture is normal. The periwound skin exhibited: Edema, Erythema, Hemosiderosis. The periwound skin did not exhibit: Atrophie Ursula, Cyanosis, Ecchymosis, Pallor, Rubor. The temperature of the periwound skin is WNL. Periwound skin does not exhibit signs or symptoms of infection. Local Pulse is Palpable. ASSESSMENT Active Problems ICD-10 (Encounter Diagnosis) L97.822 - Non-pressure chronic ulcer of other part of left lower leg with fat layer exposed (Encounter Diagnosis) I87.311 - Chronic venous hypertension (idiopathic) with ulcer of right lower extremity (Encounter Diagnosis) L08.9 - Local infection of the skin and subcutaneous tissue, unspecified PROCEDURES Wound #1 Wound #1 (Venous Ulcer) is located on the right, medial ankle. A skin/ subcutaneous tissue level surgical debridement with a total area debrided of 4 sq cm was performed by Donnie Garrido MD. Subcutaneous was removed along with devitalized tissue: callus and slough. The following instrument(s) were used: curette. Pain control was achieved using 4% Lido. A time out was conducted prior to the start of the procedure. A minimal amount of bleeding was controlled with n/a. The procedure was tolerated well with a pain level of 0 throughout and a pain level of 0 following the procedure. Post Debridement Measurements: 2cm length x 2cm width x 0.2cm depth; with an area of 4 sq cm and a volume of 0.8 cubic cm; Additional Information Muscle fascia or bone removed and sent to pathology?: No PLAN Wound Orders: Wound #1 Right, Medial Ankle Anesthetic Topical Xylocaine to wound bed. - In clinic only. Cleanser Cleanse Wound: - With Distilled water. May Shower. - Please keep dressing dry so when you shower use a Cast Protector. Topical Treatments Antibiotic/Antimicrobial Ointment/Cream. - Gentamicin ointment Dressings Pack wound: - Aquacel Extra. Primary dressing: - Superabsorbent Mextra (may alternate with poise pads). Cover and secure with: - Conform guaze and tape to secure. Change Dressing: - Everyday. Additional Orders: Compression/Edema Control Elevation of leg(s) above the level of the heart when sitting. Avoid prolonged standing in one place. Single Layer Compression Hose - Tetra size F on in the am and off in pm. Follow-Up Appointments Return Appointment: - - One Week Other information: If you develop fever, chills, increased pain, drainage, redness or swelling please call our office. If after hours, respond to the ER. Should you experience any significant changes in your wound(s) or have any questions regarding your home care instructions please contact the wound center @ [phone]. If after hours, contact your primary care physician or go to the hospital emergency room. Scribing Attestation I attest, as the nurse, that I scribed these orders for the physician. Laboratory: Culture Wound - Right leg #1 General Notes: We will call you if there is any need of antibiotics. I've reviewed the clinician's documentation and agree with the evaluation and plan as written. In addition, the patient's ulcer demonstrates evidence of non-viable devitalized tissue which will continue to benefit from sharp debridement to help promote granulation and expedite healing. Also, I've cultured the ulcer and will start treating with topical gentamicin for what appears to be a superficial infection. Electronic Signature(s) Signed By: Date: Donnie Garrido MD 02/25/2018 07:29:40 Entered By: Donnie Garrido on 02/22/2018 10:02:48
== END ==
PROVIDERS: PCP Family Medicine; Visit Provider Internal Medicine
DX: I87.311 Chronic venous hypertension (idiopathic) with ulcer of right lower extremity (principal); L97.312 Non-pressure chronic ulcer of right ankle with fat layer exposed
CPT/HCPCS: 11042; 87070; 87075; 87077; 87147; 87186; 87205

== ENCOUNTER → 2018-03-04 14:06 | Outpatient (CLI) | payer OTHER, SELFPAY | PROVIDERS: PCP Family Medicine; Visit Provider Internal Medicine | DX: I87.311 Chronic venous hypertension (idiopathic) with ulcer of right lower extremity (principal); L97.311 Non-pressure chronic ulcer of right ankle limited to breakdown of skin; I70.238 Atherosclerosis of native arteries of right leg with ulceration of other part of lower leg; E11.628 Type 2 diabetes mellitus with other skin complications | CPT/HCPCS: 11042 ==

== ENCOUNTER → 2018-03-11 09:16 | Outpatient (CLI) | payer OTHER, SELFPAY | PROVIDERS: PCP Family Medicine; Visit Provider Family Medicine | DX: I70.233 Atherosclerosis of native arteries of right leg with ulceration of ankle (principal); L97.311 Non-pressure chronic ulcer of right ankle limited to breakdown of skin; B95.7 Other staphylococcus as the cause of diseases classified elsewhere | CPT/HCPCS: 99212; 99213 ==

== ENCOUNTER → 2018-03-18 13:13 | Outpatient (CLI) | payer OTHER, SELFPAY | PROVIDERS: PCP Family Medicine; Visit Provider Family Medicine | DX: I87.311 Chronic venous hypertension (idiopathic) with ulcer of right lower extremity (principal); L97.311 Non-pressure chronic ulcer of right ankle limited to breakdown of skin; I70.238 Atherosclerosis of native arteries of right leg with ulceration of other part of lower leg; L08.9 Local infection of the skin and subcutaneous tissue, unspecified | CPT/HCPCS: 99213 ==

== ENCOUNTER → 2018-04-01 08:41 | Outpatient (CLI) | payer OTHER, SELFPAY | PROVIDERS: PCP Family Medicine; Visit Provider Family Medicine | DX: L97.822 Non-pressure chronic ulcer of other part of left lower leg with fat layer exposed (principal); I87.311 Chronic venous hypertension (idiopathic) with ulcer of right lower extremity; I70.238 Atherosclerosis of native arteries of right leg with ulceration of other part of lower leg; L08.9 Local infection of the skin and subcutaneous tissue, unspecified | CPT/HCPCS: 11042; 29581; 99212 ==

== ENCOUNTER → 2018-04-04 15:41 | Outpatient (CLI) | payer OTHER, SELFPAY | PROVIDERS: PCP Family Medicine; Visit Provider Family Medicine | DX: I87.2 Venous insufficiency (chronic) (peripheral) (principal); L97.311 Non-pressure chronic ulcer of right ankle limited to breakdown of skin | CPT/HCPCS: 99213 ==

== ENCOUNTER → 2018-04-11 10:41 | Outpatient (CLI) | payer OTHER, SELFPAY | PROVIDERS: PCP Family Medicine; Visit Provider Family Medicine | DX: I87.311 Chronic venous hypertension (idiopathic) with ulcer of right lower extremity (principal); L97.312 Non-pressure chronic ulcer of right ankle with fat layer exposed; I70.238 Atherosclerosis of native arteries of right leg with ulceration of other part of lower leg | CPT/HCPCS: 11042 ==

== ENCOUNTER → 2018-04-18 09:34 | Outpatient (CLI) | payer OTHER, SELFPAY | PROVIDERS: PCP Family Medicine; Visit Provider Family Medicine | DX: I87.311 Chronic venous hypertension (idiopathic) with ulcer of right lower extremity (principal); L97.312 Non-pressure chronic ulcer of right ankle with fat layer exposed; I70.233 Atherosclerosis of native arteries of right leg with ulceration of ankle; E11.628 Type 2 diabetes mellitus with other skin complications | CPT/HCPCS: 99213 ==

== ENCOUNTER → 2018-05-02 08:36 | Outpatient (CLI) | payer OTHER, SELFPAY | PROVIDERS: PCP Family Medicine; Visit Provider Family Medicine | DX: I87.311 Chronic venous hypertension (idiopathic) with ulcer of right lower extremity (principal); L97.312 Non-pressure chronic ulcer of right ankle with fat layer exposed; I70.233 Atherosclerosis of native arteries of right leg with ulceration of ankle | CPT/HCPCS: 99212; 99213 ==

== ENCOUNTER → 2018-05-09 08:34 | Outpatient (CLI) | payer OTHER, SELFPAY | PROVIDERS: PCP Family Medicine; Visit Provider Family Medicine | DX: I87.2 Venous insufficiency (chronic) (peripheral) (principal); Z48.817 Encounter for surgical aftercare following surgery on the skin and subcutaneous tissue | CPT/HCPCS: 99212; 99213 ==

== ENCOUNTER → 2019-12-13 08:44 | Outpatient (CLI) | payer OTHER, SELFPAY | PROVIDERS: PCP Family Medicine; Referring Provider Family Medicine; Visit Provider Family Medicine | DX: L89.893 Pressure ulcer of other site, stage 3 (principal); E66.01 Morbid (severe) obesity due to excess calories; E11.622 Type 2 diabetes mellitus with other skin ulcer; S31.105A Unspecified open wound of abdominal wall, periumbilic region without penetration into peritoneal cavity, initial encounter | CPT/HCPCS: 11042; 99212; 99214 ==

== ENCOUNTER → 2019-12-20 09:01 | Outpatient (CLI) | payer OTHER, SELFPAY | PROVIDERS: PCP Family Medicine; Referring Provider Family Medicine; Visit Provider Family Medicine | DX: L89.893 Pressure ulcer of other site, stage 3 (principal); S31.105A Unspecified open wound of abdominal wall, periumbilic region without penetration into peritoneal cavity, initial encounter; E66.01 Morbid (severe) obesity due to excess calories; E11.622 Type 2 diabetes mellitus with other skin ulcer; L08.9 Local infection of the skin and subcutaneous tissue, unspecified | CPT/HCPCS: 87070; 87077; 87147; 87186; 87205; 99213 ==

== ENCOUNTER → 2019-12-26 14:20 | Outpatient (CLI) | payer OTHER, SELFPAY | PROVIDERS: PCP Family Medicine; Referring Provider Family Medicine; Visit Provider Family Medicine | DX: L89.893 Pressure ulcer of other site, stage 3 (principal); S31.105A Unspecified open wound of abdominal wall, periumbilic region without penetration into peritoneal cavity, initial encounter; E66.01 Morbid (severe) obesity due to excess calories; E11.622 Type 2 diabetes mellitus with other skin ulcer; B95.61 Methicillin susceptible Staphylococcus aureus infection as the cause of diseases classified elsewhere; B95.1 Streptococcus, group B, as the cause of diseases classified elsewhere | CPT/HCPCS: 97597; 99212 ==

== ENCOUNTER → 2020-01-09 14:25 | Outpatient (CLI) | payer OTHER, SELFPAY | PROVIDERS: PCP Family Medicine; Referring Provider Family Medicine; Visit Provider Family Medicine | DX: L89.893 Pressure ulcer of other site, stage 3 (principal); S31.105A Unspecified open wound of abdominal wall, periumbilic region without penetration into peritoneal cavity, initial encounter; E66.01 Morbid (severe) obesity due to excess calories; E11.622 Type 2 diabetes mellitus with other skin ulcer | CPT/HCPCS: 99213 ==